=== PATIENT | male | born 1980 | race Caucasian/White ===

== ENCOUNTER 2019-12-20 01:58 | Emergency (ER) | payer OTHER ==
[~2019-12-20] VITALS: Ht 190.5 cm; Wt 99.8 kg
[2019-12-20 02:03] VITALS: Ht 190.5 cm; Wt 99.8 kg
[2019-12-20 04:16] VITALS: BP 156/93
== END 2019-12-20 04:16 | disposition home or self-care (01) ==
LOC: ED 01:58
DX: S01.111A Laceration without foreign body of right eyelid and periocular area, initial encounter (principal); F10.129 Alcohol abuse with intoxication, unspecified; V49.3XXA Car occupant (driver) (passenger) injured in unspecified nontraffic accident, initial encounter; Y93.I9 Activity, other involving external motion; Y92.413 State road as the place of occurrence of the external cause; Y99.8 Other external cause status
CPT/HCPCS: 82962